=== PATIENT | female | born 1955 | race Caucasian/White ===

== ENCOUNTER → 2020-04-24 | Outpatient (CLI) | payer MEDICARE ==
[~2020-04-24] MED LIST: ASPI81EC86; LEVOTHYROXINE PO; LIPITOR; MULTIPLE VITAMI1 CAP PO; [UNRECOGNIZED DRUG - OTHER] VG
== END ==
LOC: ZCOL.LAB 16:47
DX: R05 Cough (principal); Z20.828 Contact with and (suspected) exposure to other viral communicable diseases